=== PATIENT | male | born 1955 | race Caucasian/White ===

== ENCOUNTER 2017-12-30 00:50 | Day surgery (SDC) | payer OTHER ==
[~2017-12-30] VITALS: Ht 182.9 cm; Wt 75.7 kg
[~2017-12-30 00:50] MED LIST: CEP500 PO; DOCU-416 PO; HYDR-653 PO; IBUP-56 PO; IBUP600T22 PO; IBUPROFEN; LOR5/325 PO; MIRA25TA PO; OXYB10TA21 PO; PHEN200T32 PO; TAMS0.4C25 PO; VICODIN
[2017-12-30] MEDS ORDERED: NORMOSOL R SOLN(*) 1000 ML BAG 1,000 ML IV PRN (09:40)
[2017-12-30] MEDS ORDERED: LIDOCAINE/SOD BICARB 8.4% SYR ID ONE (09:40)
[2017-12-30] MEDS ORDERED: PROPOFOL EMUL(*) 10MG/ML 20 ML 20 ML ONE ×2 (11:04→14:12)
[2017-12-30 12:05] VITALS: BP 108/83
[2017-12-30 14:37] VITALS: BP 85/57
[2017-12-30 14:45] VITALS: BP 86/65
[2017-12-30 15:00] VITALS: BP 99/63
[2017-12-30 15:25] VITALS: BP 113/76
[2017-12-30 15:26] VITALS: BP 111/78
== END 2017-12-30 16:15 | disposition home or self-care (01) ==
LOC: OR 00:50
PROVIDERS: ATTEND Family Medicine
DX: Z12.11 Encounter for screening for malignant neoplasm of colon (principal); K63.5 Polyp of colon; Z86.010 Personal history of colon polyps
CPT/HCPCS: 00811; 45380; 88305; J2704

== ENCOUNTER → 2018-02-13 | Outpatient (CLI) | payer OTHER | LOC: LAB 12:12 | PROVIDERS: ATTEND Urology | DX: N40.1 Benign prostatic hyperplasia with lower urinary tract symptoms (principal) | CPT/HCPCS: 36415; 84153 ==

== ENCOUNTER → 2018-02-15 | Outpatient (REF) | payer OTHER | LOC: ZZSENDIN 12:41 | PROVIDERS: ATTEND Urology | DX: R31.1 Benign essential microscopic hematuria (principal) | CPT/HCPCS: 87088 ==

== ENCOUNTER 2018-06-16 02:31 | Day surgery (SDC) | payer OTHER ==
--- NOTE | 2018-06-15 13:52 | HISTORY AND PHYSICAL ---
DATE OF ADMISSION: June 16, 2018 CHIEF COMPLAINT Left inguinal hernia. HISTORY OF PRESENT ILLNESS Patient is a 63-year old white male with a history of BPH, microscopic hematuria. He was noted to have a left reducible inguinal hernia on physical exam in January of this past year. Options were discussed with patient including continued observation with possible risks of enlargement, pain and/or incarceration versus repair and he has elected to undergo operative repair at this time. Surgical risks and benefits were again reviewed with the risk of recurrence of hernia, hydrocele formation, chronic discomfort, numbness at the surgical site, damage to bowel vessels and adjacent structures and need for a secondary procedure. PAST MEDICAL HISTORY * Remote kidney stones. * Optic neuritis. * History of microscopic hematuria and urinary tract infection. * Left bladder diverticulum. * BPH. PAST SURGICAL HISTORY * Laminectomy. * Ankle fracture. * Hand fracture. * Knee surgery x2. * Cystoscopy, urethral dilation and retrograde pyelogram, April 2016. CURRENT MEDICATIONS * Ditropan XL 10 mg one today. * Flomax 0.4 mg once a day. ALLERGIES No known drug allergies. SOCIAL HISTORY Patient is single. Lives in [place], [place]. He has a remote tobacco use approximately 35 years ago. FAMILY HISTORY Noncontributory. REVIEW OF SYSTEMS Patient denies chest pain, shortness of breath, fever, chills, bleeding disorder, liver disease, nausea, vomiting or change in bowel habits. PHYSICAL EXAMINATION GENERAL: Patient is a well-developed, well-nourished white male in no acute distress. HEENT: Normocephalic, atraumatic. CHEST: Clear to auscultation bilaterally. CARDIOVASCULAR: Regular rate and rhythm. ABDOMEN: Soft, nontender. No masses palpated. : Deferred to OR. EXTREMITIES: Without clubbing, cyanosis or edema. NEUROLOGIC: Nonfocal. ASSESSMENT Patient is a 63-year old white male with a left inguinal hernia. PLAN We will perform left inguinal hernia repair. [facility]OSPITALSon[facility]
[2018-06-15 15:50] LABS: PLATELET COUNT, AUTOMATED 287 K/uL (150-450)
[~2018-06-16] VITALS: Ht 182.9 cm; Wt 74.8 kg
[2018-06-16] VITALS (7 sets, daily range): BP systolic 101–122; BP diastolic 72–78
[2018-06-16] MEDS ORDERED: LIDOCAINE/SOD BICARB 8.4% SYR ID ONE (09:35)
[2018-06-16] MEDS ORDERED: MIDAZOLAM 2 MG/2 ML VIAL IVP PRN (09:35)
[2018-06-16] MEDS ORDERED: ceFAZolin(*) 1 GM VIAL 1 GM in NS(*) 0.9% 100 ML ADDVANT BAG 100 ML IVPB ONE (09:35)
[2018-06-16] MEDS ORDERED: FAMOTIDINE 20 MG TAB PO ONE (09:35)
[2018-06-16] MEDS ORDERED: NORMOSOL R SOLN(*) 1000 ML BAG 1,000 ML IV PRN (09:35)
[2018-06-16] MEDS ORDERED: ceFAZolin(*) 1 GM VIAL 1 GM, GENTAMICIN(*) 80 MG/2 ML VIAL 60 MG in NS 0.9% IRRIGATION ... IR ONE (09:35)
[2018-06-16] MEDS ORDERED: ROPIVACAINE 0.2% 20 ML VIAL ONE (10:07)
[2018-06-16] MEDS ORDERED: PROPOFOL EMUL(*) 10MG/ML 20 ML 20 ML ONE (10:08)
[2018-06-16] MEDS ORDERED: ONDANSETRON 4 MG/2 ML VIAL ONE (10:08)
[2018-06-16] MEDS ORDERED: LIDOCAINE MPF 1% 5 ML VIAL ONE (10:08)
[2018-06-16] MEDS ORDERED: DEXAMETHASONE SOD PHOS 10MG/ML ONE (10:08)
[2018-06-16] MEDS ORDERED: KETAMINE HCL-NS 50 MG/5 ML SYR ONE (10:08)
[2018-06-16] MEDS ORDERED: fentaNYL CITR 100 MCG/2 ML AMP ONE ×2 (10:08→12:47)
[2018-06-16] MEDS ORDERED: DOCU-416 PO (12:59)
[2018-06-16] MEDS ORDERED: PER PO (12:59)
[2018-06-16] MEDS ORDERED: IBUP600T22 PO (13:07)
[2018-06-16] MEDS ORDERED: KETOROLAC 30 MG/ML VIAL ONE (13:18)
--- NOTE | 2018-06-16 13:45 | NUR ---
1345- PT BROUGHT TO STEP DOWN BAY 12, PT IS IN SF POSITION, VSS, PT IS A/O X 3, PT IS MAINTAINING SATS, RESPIRATIONS AND AIRWAY ON RA, PT HAS BULKY DRESSING TO LEFT GROIN, INCISION HAS DERMA MADRIGAL IN PLACE AND IT IS CDI, SBAR REPORT FROM MICHELLE RN 1355- PT TOLERATING ORANGE JUICE AND WATER 1400- REPOSITIONED PT IN BED, PT TOLERATING CHEESE AND CRACKERS 1401- SL IV
--- NOTE | 2018-06-16 13:45 | OPERATIVE REPORT 1 ---
EVENT DATE: June 16, 2018 SURGEON: Ty Garcia MD ANESTHESIOLOGIST: Jack Liu MD ANESTHESIA: General. PREOPERATIVE DIAGNOSIS Left inguinal hernia. POSTOPERATIVE DIAGNOSES 1. Left cord lipoma. 2. Left direct inguinal hernia. PROCEDURES PERFORMED 1. Removal of left cord lipoma. 2. Left direct inguinal hernia repair using Rhett technique with mesh. ESTIMATED BLOOD LOSS 20 CC. IV FLUIDS Crystalloids. DRAINS None. COMPLICATIONS None. PATHOLOGY Cord lipoma for analysis. CONDITION Patient is taken to the recovery room awake and in stable condition. STATEMENT OF MEDICAL NECESSITY The patient is a 63-year old white male who was noted to have a left inguinal hernia on physical exam in followup and he has elected to undergo left inguinal hernia repair. Risks and benefits were explained including bleeding, infection, damage to adjacent structures, recurrence, postoperative numbness and/or pain and need for secondary procedure. Operative consent is signed and on the chart. DESCRIPTION OF PROCEDURE The patient was brought to the operating room and after general anesthetic was obtained, he was placed supine on the operating room table and prepped and draped in the sterile manner. A left lower quadrant skin incision was made just over the pubic tubercle proceeding out superior laterally and along the lines of the Jenny with #15 blade knife. This was taken down through the subcutaneous tissue with electrocautery. The aponeurosis of the external oblique was encountered. This was then incised parallel with its fibers, exposing the inguinal canal contents. He was noted to have a moderately large cord lipoma on the anterior lateral aspect of the cord. After this was dissected off the cord, there was no indirect sac identified. After close inspection, the floor revealed a significant attenuation consistent with hernia. At this point, the cord lipoma was dissected off the cord structures down to the internal ring. It was then doubly cross-clamped with running 0 clamps and sharply removed. It was inspected after removal to ensure there were no other structures and appeared to be a simple lipoma. The stump was then doubly tied with 2-0 silk thick-tie ligatures. Following this, next the direct hernia was repaired using Rhett technique. A piece of mesh was opened and cut to appropriate size with the medial aspect slightly tapered and the lateral aspect incised to provide two tails to go around the cord. It was then sutured in place with 2-0 PDS starting at the pubic tubercle, proceeding around medial superiorly along the transversalis fascia and then inferolaterally along the inguinal ligament. It was then secured laterally to the cord to each other to provide a tree- internal ring. Following mesh placement, the wound was irrigated with copious amount of antibiotic solution. Counts were done and were correct for instruments, sponges and laps. 0.25% ropivacaine was given along the cord, transversalis fascia and skin edges and the wound was then closed. First, a running layer of 2-0 Vicryl was used to reapproximate the external oblique aponeurosis and then the subcutaneous tissue reapproximated with interrupted 3-0 Chromic and the skin was closed with a running 4-0 subcuticular Vicryl stitch. Skin adhesive was placed along the skin edge. A sterile dressing and scrotal support were applied at the conclusion of the case. The patient was awakened in the operating room and taken to the recovery area in stable condition. PLAN We will allow the patient to be discharged home today on Motrin alternating with Percocet. He is also given a prescription for Colace. We will see the patient in approximately four to six weeks for followup. He is to continue scrotal support and ice pack for the next 36 hours. ONEYDA
--- NOTE | 2018-06-16 14:15 | NUR ---
1415- PT SATS DROPPED TO 85% ON RA, RN INTO ROOM, PT IS IN SF POSITION QUIETLY READING ON HIS PHONE, PT REPORTS HE IS PRACTICING HIS DEEP BREATHING, PLACED PT ON 0.5LPM SATS LINSEY TO 95% ON 0.5LPM,WILL CONTINUE TO MONITOR PT SATS
--- NOTE | 2018-06-16 14:30 | NUR ---
1430- VSS, PT REPORTS FEELING DROWSY, WARM BLANKETS APPLIED AND PT PLACED IN A LYING POSITIONED, LIGHTS LOWERED AND CALL LIGHT WITHIN REACH
--- NOTE | 2018-06-16 14:55 | NUR ---
1455- ANÍBAL S/O AT BEDSIDE, PT AWAKE, PT WOULD LIKE TO REST SOME MORE, ANÍBAL TO RUN SOME ERRANDS AND FILL PRESCRIPTION
--- NOTE | 2018-06-16 15:13 | NUR ---
1513- PT PLACED ON RA, PT CONTINUES TO REST
--- NOTE | 2018-06-16 15:29 | NUR ---
1529- PT AWAKE AND WOULD LIKE TO GET HOME
--- NOTE | 2018-06-16 15:35 | NUR ---
1535- ORTHO VSS, PT MAINTAINING SATS, RESPIRATIONS AND AIRWAY ON RA, LUNGS CTA, PT AMBULATORY TO RESTROOM, STEADY GAIT NOTED
--- NOTE | 2018-06-16 15:45 | NUR ---
1545- PT BACK FROM [facility], PT REPORTS VOID X 1 W/O ISSUES, D/C IV WITH CATH INTACT PRESSURE DRESSING APPLIED WITH GAUZE AND COBAND
--- NOTE | 2018-06-16 16:11 | NUR ---
1550- SEBASTIEN S/O AT BEDSIDE 1600- REVIEWED D/C INSTRUCTIONS WITH PT AND S/O 1610- PT AMBULATOR TO ER PARKING LOT W/O INCIDENT, ACCOMPANIED BY HEATH RUSHING AND SEBASTIEN S/O
== END 2018-06-16 13:45 | disposition home or self-care (01) ==
LOC: OR 02:31
PROVIDERS: ATTEND Urology
DX: K40.90 Unilateral inguinal hernia, without obstruction or gangrene, not specified as recurrent (principal); D17.6 Benign lipomatous neoplasm of spermatic cord; N40.0 Benign prostatic hyperplasia without lower urinary tract symptoms
CPT/HCPCS: 36415; 49505; 55520; 81001; 85025; 87088; 88304; J0690; J1100; J1885; J2001; J2405; J2704; J2795; J3010; J3490; J7050; 82310; 82374; 82435; 82565; 82947; 84132; 84295; 84520